=== PATIENT | female | born 1995 | race African-American/Black ===

== ENCOUNTER 2017-07-23 12:30 | Emergency (ER) | payer MEDICAID ==
--- NOTE | 2017-07-23 13:36 | EDPHY ---
H & P Time Seen by Provider: 07/23/17 13:19 HPI/ROS: CHIEF COMPLAINT: Migraine, syncope HISTORY OF PRESENT ILLNESS: This patient is a 21 y/o female with history of migraines complaining of headache and two syncopal episodes. She woke this morning with a typical migraine headache and nausea. FLOWER varies in location and is moderate. When she got up from bed, she felt that walking was difficult due to dizziness and "balance problems". She felt as if she was going to fall over due to lightheadedness. She started getting ready for work and had a syncopal episode and fell to the ground. She got up and had a glass of water, but felt dizzy and had another syncopal episode. Denies any trauma. Happened a couple hours ago, and she went to urgent care. Staff at urgent care referred her to the emergency department. Currently, she continues to have FLOWER and photophobia. No fever, vomiting, visual changes, numbness, weakness, or other associated symptoms. REVIEW OF SYSTEMS: A 10 point review of systems was performed and is negative with the exception of the elements mentioned in the history of present illness. Past Medical/Surgical History: Migraines. Endometriosis. Ruptured disc. Social History: Lives in [place]. Single. Employed. No recent alcohol Smoking Status: Never smoked Physical Exam: General Appearance: Alert, pleasant, towel over eyes Eyes: Pupils equal and round, no conjunctival pallor or injection, EOMI ENT, Mouth: Lips appear pale. Mucous membranes moist Neck: Normal inspection Respiratory: Lungs are clear to auscultation Cardiovascular: Regular rate and rhythm Gastrointestinal: Abdomen is soft and non-tender Neurological: Alert, oriented x3, cranial nerves II through XII intact, motor 5 /5, sensory intact to light touch, normal gait. No pronator drift. Skin: Warm and dry Extremities: Normal inspection Psychiatric: Mood and affect normal Constitutional: Initial Vital Signs Temperature (C) 36.7 C 07/23/17 12:34 Heart Rate 86 07/23/17 12:34 Respiratory Rate 18 07/23/17 12:34 Blood Pressure 115/82 H 07/23/17 12:34 O2 Sat (%) 98 07/23/17 12:34 O2 Delivery Mode Room Air Allergies/Adverse Reactions: No Known Allergies Allergy (Unverified 07/23/17 12:34) Home Medications: Medication Instructions Recorded NK [No Known Home Meds] 07/23/17 Medical Decision Making - Diagnostics EKG Interpretation: EKG interpreted by me reveals normal sinus rhythm, rate 65, no ST or T segment changes. ED Course/Re-evaluation: 21 y/o female presents with migraine and syncope. Lips pale on exam. She is neurologically intact. Patient states "meds don't work for me". She accepts a migraine cocktail for relief of symptoms. Plan to administer 10 mg IV Decadron , 10mg IV Reglan, 25mg IV Benadryl, and 1L IVF for symptom relief. Will reassess after meds. EKG shows sinus rhythm. 14:20 Reassessed patient. She feels better following migraine cocktail administration. She is drowsy currently. Continues to feel much better on reassessment. Ambulates with a steady gait and is not dizzy or off balance. Presentation c/w typical migraine, I do not feel that neuroimaging is indicated. This is not a thunderclap headache or worse headache ever and I do not suspect subarachnoid hemorrhage. Plan to d/c home in good condition. Follow up and return precautions discussed. She is comfortable with this plan. Differential Diagnosis: Headache including but not limited to subarachnoid hemorrhage, migraine headache , tension headache and infectious causes such as meningitis, pharyngitis and sinusitis. - Data Points Laboratory Results: Laboratory Results 07/23/17 14:00 07/23/17 14:00 07/23/17 07/23/17 14:00 14:00 WBC 3.91 10^3/uL 10^3/uL (3.80-9.50) RBC 4.56 10^6/uL 10^6/uL (4.18-5.33) Hgb 11.0 g/dL L g/dL (12.6-16.3) Hct 35.2 % L % (38.0-47.0) MCV 77.2 fL L fL (81.5-99.8) MCH 24.1 pg L pg (27.9-34.1) MCHC 31.3 g/dL L g/dL (32.4-36.7) RDW 14.3 % % (11.5-15.2) Plt Count 282 10^3/uL 10^3/uL (150-400) MPV 9.9 fL fL (8.7-11.7) Neut % (Auto) 54.6 % % (39.3-74.2) Lymph % (Auto) 36.6 % % (15.0-45.0) [place] % (Auto) 6.4 % % (4.5-13.0) Eos % (Auto) 1.3 % % (0.6-7.6) Baso % (Auto) 0.8 % % (0.3-1.7) Nucleat RBC Rel Count 0.0 % % (0.0-0.2) Absolute Neuts (auto) 2.14 10^3/uL 10^3/uL (1.70-6.50) Absolute Lymphs (auto) 1.43 10^3/uL 10^3/uL (1.00-3.00) Absolute Monos (auto) 0.25 10^3/uL L 10^3/uL (0.30-0.80) Absolute Eos (auto) 0.05 10^3/uL 10^3/uL (0.03-0.40) Absolute Basos (auto) 0.03 10^3/uL 10^3/uL (0.02-0.10) Absolute Nucleated RBC 0.00 10^3/uL 10^3/uL (0-0.01) Immature Gran % 0.3 % % (0.0-1.1) Immature Gran # 0.01 10^3/uL 10^3/uL (0.00-0.10) Sodium 139 mEq/L mEq/L (135-145) Potassium 4.3 mEq/L mEq/L (3.5-5.2) Chloride 105 mEq/L mEq/L (97-110) Carbon Dioxide 23 mEq/l mEq/l (22-31) Anion Gap 11 mEq/L mEq/L (8-16) BUN 14 mg/dL mg/dL (7-23) Creatinine 0.7 mg/dL mg/dL (0.6-1.0) Estimated GFR > 60 Glucose 76 mg/dL mg/dL (70-100) Calcium 9.1 mg/dL mg/dL (8.5-10.4) Medications Given: Discontinued Medications Dexamethasone (Decadron Injection) 10 mg IVP EDNOW ONE Stop: 07/23/17 13:42 Last Admin: 07/23/17 14:01 Dose: 10 mg Diphenhydramine HCl (Benadryl Injection) 25 mg IVP EDNOW ONE Stop: 07/23/17 13:42 Last Admin: 07/23/17 14:01 Dose: 25 mg Sodium Chloride (Ns) 1,000 mls @ 0 mls/hr IV ONCE ONE; Wide Open PRN Reason: Protocol Stop: 07/23/17 13:42 Last Admin: 07/23/17 14:00 Dose: 1,000 mls Metoclopramide HCl (Reglan Injection) 10 mg IVP EDNOW ONE Stop: 07/23/17 13:42 Last Admin: 07/23/17 14:01 Dose: 10 mg Departure - Departure Disposition: Home, Routine, Self-Care Clinical Impression: Migraine Qualifiers: Migraine type: without aura Status migrainosus presence: without status migrainosus Intractability: not intractable Qualified Code(s): G43.009 - Migraine without aura, not intractable, without status migrainosus Syncope Qualifiers: Syncope type: unspecified Qualified Code(s): R55 - Syncope and collapse Condition: Good Instructions: Migraine Headache (ED), Syncope (ED) Additional Instructions: 1. Follow-up with your primary care physician within 2-3 days. 2. Return to the emergency department for recurrence of headache, repeat episodes of fainting, nausea, vomiting, numbness, weakness, neck pain, fever or other concerns. Referrals: Selwyn Ha MD [Medical Doctor] - As per Instructions Report Scribed for: Joanie Hewitt Report Scribed by: Johanny Agarwal Date of Report: 07/23/17 Time of Report: 14:58 Physician Review and Approval Statement: 07/23/17 14:58 Portions of this note were transcribed by a center medical and lab director. I personally performed a history, physical exam, medical decision making, and confirmed accuracy of information the transcribed note.
[2017-07-23] MEDS ORDERED: METOCLOPRAMIDE 10 MG/2 ML VIAL IVP ONE (13:41)
[2017-07-23] MEDS ORDERED: NS 1,000 ML IV ONE (13:41)
[2017-07-23] MEDS ORDERED: DEXAMETHASONE 10 MG/ML VIAL IVP ONE (13:41)
[2017-07-23 14:05] LABS: PLATELET COUNT 282 10^3/uL (150-400)
--- NOTE | 2017-07-23 14:05 | CPEKG ---
Heart Rate: 65 RR Interval: 923 P-R Interval: 192 QRSD Interval: 84 QT Interval: 364 QTC Interval: 379 P [place]: 64 QRS [place]: 158 T Wave [place]: 38 EKG Severity - BORDERLINE ECG - EKG Impression: SINUS RHYTHM EKG Impression: CONSIDER RIGHT VENTRICULAR HYPERTROPHY Electronically Signed By: Joanie Hewitt 23-Jul-2017 19:25:36
[2017-07-23 15:12] VITALS: BP 135/80; PULSE 78; RESP 16; TEMP 98.6; O2SAT 97
== END 2017-07-23 15:12 | disposition home or self-care (01) ==
DX: G43.009 Migraine without aura, not intractable, without status migrainosus (principal); R55 Syncope and collapse; E86.9 Volume depletion, unspecified
CPT/HCPCS: 96374; J1100; J1200; J2765

== ENCOUNTER 2018-01-26 20:05 | Emergency (ER) | payer MEDICAID ==
[2018-01-26] MEDS ORDERED: NS 1,000 ML IV ONE (20:43)
[2018-01-26] MEDS ORDERED: ONDANSETRON 4 MG/2 ML VIAL IVP ONE (20:43)
--- NOTE | 2018-01-26 20:46 | EDPHY ---
H & P Time Seen by Provider: 01/26/18 20:34 HPI/ROS: CHIEF COMPLAINT: Pelvic cramping and vomiting HISTORY OF PRESENT ILLNESS: Patient has her menstrual period but she has never had bleeding or cramping this bad. She says she went through 14 tampons today and at 3 or 4 episodes of nausea and vomiting today the last 1:11 a.m. Associated with fever and some green diarrhea. No vaginal discharge and no urinary symptoms, no dysuria or hematuria. She was lightheaded and dizzy yesterday and says she passed out twice. Denies . Says the pelvic cramping is severe, not better worse with anything. REVIEW OF SYSTEMS: Eye: no change in vision ENT: no sore throat Cardiac: No chest pain Pulmonary: no cough or SOB Abdomen: HPI Musculoskeletal: no back pain Skin: no rash Neuro: no headache Constitutional: no fever : HPI A comprehensive 10 point review of systems is otherwise negative aside from elements mentioned in the history of present illness. PAST MEDICAL HISTORY: Includes migraine headaches and"ruptured disc"at L1-L2 in her spine. Social history: Originally from [facility], here for college at . General Appearance: Alert and conversant, cooperative. Eyes: No scleral icterus. ENT, Mouth: Slightly dry mucous membranes. Respiratory: Normal respiratory effort, breath sounds equal, lungs are clear to auscultation. Cardiovascular: Regular rate and rhythm. Gastrointestinal: Bilateral lower abdominal tenderness without rebound or guarding. Neurological: Alert, face symmetric, normal motor and sensory in extremities. Skin: Warm and dry, no rashes. Musculoskeletal: No peripheral edema. Psychiatric: Not agitated. Emergency Department course/MDM: Plan for ultrasound, CBC and chemistries, Toradol and Zofran. test. 2205: Results discussed, Toradol given, likely dysmenorrhea. Unlikely to be ectopic or pyelonephritis or PID or ovarian torsion or cyst. 2027: stable for discharge, chemotherapist followup; pain adequately controlled. Smoking Status: Never smoked Constitutional: Initial Vital Signs Temperature (C) 36.7 C 01/26/18 20:15 Heart Rate 89 01/26/18 20:15 Respiratory Rate 20 01/26/18 20:15 Blood Pressure 153/90 H 01/26/18 20:15 O2 Sat (%) 97 01/26/18 20:15 O2 Delivery Mode Room Air Allergies/Adverse Reactions: No Known Allergies Allergy (Unverified 01/26/18 20:15) Home Medications: Medication Instructions Recorded NK [No Known Home Meds] 07/23/17 Medical Decision Making - Diagnostics EKG Interpretation: 12-lead EKG interpreted by me; official reading is in computer system. My interpretation is sinus rhythm with right axis otherwise normal, normal intervals. Rate 83. Imaging Results: Imaging Impressions Pelvic/Renal Ultrasound 01/26/18 20:43 Impression: 1. No ovarian torsion or significant free fluid in the pelvis. 2. Left paraovarian 1.3-cm simple cyst. 3. No uterine fibroids or abnormal endometrial thickening. Findings and recommendations discussed with Emergency Department physician, Mic Obregon M.D., at 2152 hours, on January 26, 2018. Final report concurs with initial preliminary interpretation. - Data Points Laboratory Results: Laboratory Results 01/26/18 20:55 01/26/18 20:55 01/26/18 01/26/18 01/26/18 20:55 20:55 20:55 WBC 5.70 10^3/uL 10^3/uL (3.80-9.50) RBC 4.55 10^6/uL 10^6/uL (4.18-5.33) Hgb 10.6 g/dL L g/dL (12.6-16.3) Hct 34.0 % L % (38.0-47.0) MCV 74.7 fL L fL (81.5-99.8) MCH 23.3 pg L pg (27.9-34.1) MCHC 31.2 g/dL L g/dL (32.4-36.7) RDW 15.6 % H % (11.5-15.2) Plt Count 353 10^3/uL 10^3/uL (150-400) MPV 9.3 fL fL (8.7-11.7) Neut % (Auto) 61.5 % % (39.3-74.2) Lymph % (Auto) 31.2 % % (15.0-45.0) [place] % (Auto) 5.1 % % (4.5-13.0) Eos % (Auto) 1.6 % % (0.6-7.6) Baso % (Auto) 0.4 % % (0.3-1.7) Nucleat RBC Rel Count 0.0 % % (0.0-0.2) Absolute Neuts (auto) 3.51 10^3/uL 10^3/uL (1.70-6.50) Absolute Lymphs (auto) 1.78 10^3/uL 10^3/uL (1.00-3.00) Absolute Monos (auto) 0.29 10^3/uL L 10^3/uL (0.30-0.80) Absolute Eos (auto) 0.09 10^3/uL 10^3/uL (0.03-0.40) Absolute Basos (auto) 0.02 10^3/uL 10^3/uL (0.02-0.10) Absolute Nucleated RBC 0.00 10^3/uL 10^3/uL (0-0.01) Immature Gran % 0.2 % % (0.0-1.1) Immature Gran # 0.01 10^3/uL 10^3/uL (0.00-0.10) Sodium 138 mEq/L mEq/L (135-145) Potassium 4.0 mEq/L mEq/L (3.3-5.0) Chloride 105 mEq/L mEq/L (97-110) Carbon Dioxide 24 mEq/l mEq/l (22-31) Anion Gap 9 mEq/L mEq/L (8-16) BUN 12 mg/dL mg/dL (7-23) Creatinine 0.6 mg/dL mg/dL (0.6-1.0) Estimated GFR > 60 Glucose 87 mg/dL mg/dL (70-100) Calcium 9.5 mg/dL mg/dL (8.5-10.4) Beta HCG, Qual NEGATIVE Medications Given: Discontinued Medications Sodium Chloride (Ns) 1,000 mls @ 0 mls/hr IV ONCE ONE; Wide Open PRN Reason: Protocol Stop: 01/26/18 20:44 Last Admin: 01/26/18 20:46 Dose: 1,000 mls Ketorolac Tromethamine (Toradol) 15 mg IVP EDNOW ONE Stop: 01/26/18 21:54 Last Admin: 01/26/18 22:00 Dose: 15 mg Ondansetron HCl (Zofran) 4 mg IVP EDNOW ONE Stop: 01/26/18 20:44 Last Admin: 01/26/18 21:13 Dose: 4 mg Departure - Departure Disposition: Home, Routine, Self-Care Clinical Impression: Dysmenorrhea Syncope Qualifiers: Syncope type: vasovagal syncope Qualified Code(s): R55 - Syncope and collapse Condition: Good Instructions: Dysmenorrhea (ED), Syncope (ED) Referrals: Loretta Garcia MD [Medical Doctor] - 5-7 days, call for appt. (Please follow-up next week with this OBGYN.) Stand Alone Forms: Work Excuse
[2018-01-26 21:04] LABS: PLATELET COUNT 353 10^3/uL (150-400)
[2018-01-26] MEDS ORDERED: KETOROLAC 30 MG/1 ML SDV IVP ONE (21:53)
--- NOTE | 2018-01-26 21:59 | CPEKG ---
Test Reason : OPEN Blood Pressure : / mmHG Vent. Rate : 083 BPM Atrial Rate : 082 BPM P-R Int : 174 ms QRS Dur : 089 ms QT Int : 362 ms P-R-T Axes : 049 163 031 degrees QTc Int : 426 ms Sinus rhythm Right axis deviation Confirmed by Mic Obregon ([id number]) on 01/26/2018 9:58:40 PM Referred By: Confirmed By:Mic Obregon
[2018-01-26 22:03] VITALS: BP 139/81
== END 2018-01-26 22:43 | disposition home or self-care (01) ==
DX: N94.6 Dysmenorrhea, unspecified (principal); R55 Syncope and collapse; E86.9 Volume depletion, unspecified
CPT/HCPCS: 96374; J1885; J2405